=== PATIENT | female | born 1955 | race Caucasian/White ===

== ENCOUNTER 2025-03-06 14:35 | Day surgery (SDC) | payer MEDICARE, OTHER ==
[2025-03-06] MEDS ORDERED: Lactated Ringers IV ONE (14:36)
[2025-03-06] MEDS ORDERED: Depo-Medrol 40 MG/ML IM ONE (14:36)
[2025-03-06] MEDS ORDERED: LIDOCAINE HCL 1% AMPUL 5 ML IJ ONE (14:36)
[2025-03-06] MEDS ORDERED: BUPIVACAINE 0.5% VIAL IJ ONE (14:36)
--- NOTE | 2025-03-06 19:44 | XRAY ---
Indication: Right knee injection. Intraoperative fluoroscopy provided for 7 seconds. Single digital spot image submitted for interpretation demonstrates needle tip projecting over right femur intercondylar notch. Small amount of contrast injected for needle tip placement. Correlate with intraoperative findings/report.
--- NOTE | 2025-03-06 19:44 | XRAY ---
Indication: Left knee injection. Intraoperative fluoroscopy provided for 11 seconds. Single digital spot image submitted for interpretation demonstrates needle tip projecting over left femur intercondylar notch. Small amount of contrast injected for needle tip placement. Correlate with intraoperative findings/report.
--- NOTE | 2025-03-06 19:46 | XRAY ---
7 seconds of fluoroscopy were used in surgery for a right intra-articular knee injection.
--- NOTE | 2025-03-06 19:46 | XRAY ---
11 seconds of fluoroscopy were used in surgery for a left intra-articular knee injection.
== END 2025-03-06 17:50 | disposition home or self-care (01) ==
LOC: SDC-PAIN 14:35
PROVIDERS: ATTEND Psychiatry & Neurology Pain Medicine
DX: M17.0 Bilateral primary osteoarthritis of knee (principal); M70.51 Other bursitis of knee, right knee
CPT/HCPCS: 20610; 73560; 77002; Q9966

== ENCOUNTER 2025-03-09 11:09 | Emergency (ER) | payer MEDICARE, OTHER ==
--- NOTE | 2025-03-09 11:13 | ERPHSYRPT ---
- History of Present Illness Time Seen by Provider: 03/09/25 11:13 Source: patient, family Exam Limitations: no limitations Physician History: This is an overweight 69-year-old white female patient of Dr. Perez who arrives by private vehicle accompanied by her because of concerned of high blood pressure issues. Patient currently takes hydralazine 3 times a day and she took her morning dose. She has noticed in the last 3 to 4 days that her blood pressure has been running high. She intermittently has had episodes of left-sided headache and brief, intermittent left upper extremity numbness. Although symptoms have resolved. She has had no symptoms since over 24 hours ago. She has no headaches today and no numbness. On arrival to the emergency department her initial blood pressure reading was 251 mmHg over 136 mmHg. The second systolic blood pressure reading was 212. She is not having chest pain and she is not short of breath. Patient does have a history of hypertension on hydralazine and does take Xarelto. Timing/Duration: day(s) (3) Severity: moderate Associated Symptoms: headaches (No headaches now or today. Over 24 hours ago she did have a mild left-sided headache), other (2 days ago, she had mild, brief left upper quadrant numbness. She has no numbness today), No shortness of breath, No chest pain, No syncope, No seizure Allergies/Adverse Reactions: No Known Drug Allergies Allergy (Verified 03/09/25 11:48) Home Medications: Hydralazine HCl 50 mg PO BID 04/12/16 [History] Meloxicam [Mobic] 15 mg PO DAILY 03/09/25 [History] Rivaroxaban [Xarelto] 20 mg PO EVENING MEAL 03/09/25 [History] Travel Risk - International Travel Have you traveled outside of the country in past 3 weeks: No - Emerging Infectious Disease Are you exhibiting symptoms associated with any current EIDs: No - Review of Systems Constitutional: No Symptoms Eyes: No Symptoms Ears, Nose, & Throat: No Symptoms Respiratory: No Symptoms Cardiac: No Symptoms Abdominal/Gastrointestinal: No Symptoms Genitourinary Symptoms: No Symptoms Musculoskeletal: No Symptoms Skin: No Symptoms Neurological: No Symptoms, Other (She currently denies headache. She currently denies any type of numbness or neurological issues. Her NIH score is 0) Psychological: No Symptoms Endocrine: No Symptoms Hematologic/Lymphatic: No Symptoms Immunological/Allergic: No Symptoms All Other Systems: Reviewed and Negative - Past Medical History Neurological History: No Pertinent History Cardiac History: Hypertension Respiratory History: No Pertinent History Endocrine Medical History: No Pertinent History Musculoskeletal History: Fractures Other Medical History: PATIENT HAD A POSTERIOR APPROACH. - Past Surgical History Past Surgical History: Yes Neuro Surgical History: No Pertinent History Cardiac: No Pertinent History Gastrointestinal: No Pertinent History Genitourinary: No Pertinent History Musculoskeletal: No Pertinent History Female Surgical History: No Pertinent History Other Surgical History: R knee scope. 12/2015 - Social History Smoking Status: Never smoker Exposure to second hand smoke: No - Nursing Vital Signs Nursing Vital Signs: Initial Vital Signs Temperature 97.7 F 03/09/25 11:42 Pulse Rate 86 03/09/25 11:42 Respiratory Rate 14 03/09/25 11:42 Blood Pressure 251/136 03/09/25 11:42 O2 Sat by Pulse Oximetry 96 03/09/25 11:42 Pain Scale Pain Intensity 0 - Physical Exam General Appearance: no apparent distress, alert, anxiety Eye Exam: PERRL/EOMI, other (Mild, medial subconjunctival hemorrhage left pupil.) Ears, Nose, Throat Exam: normal ENT inspection, moist mucous membranes Neck Exam: normal inspection, non-tender, supple, full range of motion Respiratory Exam: normal breath sounds, lungs clear, airway intact, No chest tenderness, No respiratory distress Cardiovascular Exam: regular rate/rhythm, normal heart sounds, normal peripheral pulses Gastrointestinal/Abdomen Exam: soft, normal bowel sounds, No tenderness Pelvic Exam: not done Rectal Exam: not done Back Exam: normal inspection, normal range of motion, No CVA tenderness, No vertebral tenderness Extremity Exam: normal inspection, normal range of motion, pelvis stable Neurologic Exam: alert, oriented x 3, cooperative, 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, nml cerebellar function, nml station & gait, sensation nml Skin Exam: normal color, warm, dry Lymphatic Exam: No adenopathy SpO2 Interpretation: normal O2 Delivery: Room Air - Course Nursing assessment & vital signs reviewed: Yes Ordered Tests: Active Orders 24 hr Category Date Time Status Title Investigator STAT Care 03/09/25 12:22 Active EKG-ER Only STAT Care 03/09/25 12:21 Active IV Insertion STAT Care 03/09/25 12:21 Active NPO (ED) STAT Care 03/09/25 12:21 Active Pulse Oximetry (ED) STAT Care 03/09/25 12:21 Active HEAD WITHOUT CONTRAST [CT] Stat Exams 03/09/25 12:21 Completed CBC W DIFF Stat Lab 03/09/25 13:09 Completed CMP Stat Lab 03/09/25 13:09 Completed MAG [MAGNESIUM] Stat Lab 03/09/25 13:09 Completed UA W/RFX UR CULTURE Stat Lab 03/09/25 12:21 Completed Medication Summary Discontinued Medications Generic Name Dose Route Start Last Admin Trade Name Freq PRN Reason Stop Dose Admin Hydralazine HCl 10 mg 03/09/25 12:22 03/09/25 12:32 Hydralazine Hcl 20 Mg/Ml Vial IV 03/09/25 12:23 10 mg STAT ONE Administration Hydralazine HCl Confirm 03/09/25 12:30 Hydralazine Hcl 20 Mg/Ml Vial Administered 03/09/25 12:31 Dose 20 mg .ROUTE .STK-MED ONE Hydralazine HCl 10 mg 03/09/25 13:29 03/09/25 13:33 Hydralazine Hcl 20 Mg/Ml Vial IV 03/09/25 13:30 10 mg STAT ONE Administration Hydralazine HCl Confirm 03/09/25 13:32 Hydralazine Hcl 20 Mg/Ml Vial Administered 03/09/25 13:33 Dose 20 mg .ROUTE .STK-MED ONE Hydralazine HCl 5 mg 03/09/25 14:31 03/09/25 14:39 Hydralazine Hcl 20 Mg/Ml Vial IV 03/09/25 14:32 5 mg STAT ONE Administration Hydralazine HCl Confirm 03/09/25 14:37 Hydralazine Hcl 20 Mg/Ml Vial Administered 03/09/25 14:38 Dose 20 mg .ROUTE .STK-MED ONE Lab/Rad Data: Laboratory Result Diagrams 03/09/25 13:09 03/09/25 13:09 Laboratory Results 03/09/25 03/09/25 03/09/25 Range/Units 13:09 13:09 13:09 WBC 10.3 H (3.98-10.04) x10^3/uL RBC 4.63 (3.93-5.22) x10^6/uL Hgb 14.0 (11.2-15.7) g/dL Hct 41.7 (34.1-44.9) % MCV 90.1 (79.4-94.8) fL MCH 30.2 (25.6-32.2) pg MCHC 33.6 (32.2-35.5) g/dL RDW 13.3 (11.7-14.4) % Plt Count 264 (182-369) x10^3/uL MPV 8.8 L (9.4-12.3) fL Gran % 77.7 H (34.0-71.1) % Immature Gran % (Auto) 0.5 H (0.001-0.429) % Nucleat RBC Rel Count 0.0 (0.00-0.2) % Eos # (Auto) 0.11 (0.04-0.36) x10^3/uL Immature Gran # (Auto) 0.05 H (0.001-0.031) x10^3u/L Absolute Lymphs (auto) 1.10 L (1.18-3.74) x10^3/uL Absolute Monos (auto) 0.96 H (0.24-0.86) x10^3/uL Absolute Nucleated RBC 0.00 (0.00-0.012) x10^3u/L Lymphocytes % 10.7 L (19.3-51.7) % Monocytes % 9.3 (4.7-12.5) % Eosinophils % 1.1 (0.7-5.8) % Basophils % 0.7 (0.1-1.2) % Absolute Granulocytes 8.00 H (1.56-6.13) x10^3/uL Basophils # 0.07 (0.01-0.08) x10^3/uL Sodium 141 (135-145) mmol/L Potassium 3.5 (3.5-5.1) mmol/L Chloride 106 (98-107) mmol/L Carbon Dioxide 21 L (22-30) mmol/L Anion Gap 18.2 H (5-15) MEQ/L BUN 11 (7-17) mg/dL Creatinine 0.56 (0.52-1.04) mg/dL Estimated GFR 100.0 ML/MIN Glucose 121 H (74-106) mg/dL Calcium 10.4 H (8.4-10.2) mg/dL Magnesium 1.9 (1.6-2.3) mg/dL Total Bilirubin 0.60 (0.2-1.3) mg/dL AST 32 (14-36) U/L ALT 29 (0-35) U/L Alkaline Phosphatase 117 (38-126) U/L Serum Total Protein 7.6 (6.3-8.2) g/dL Albumin 4.6 (3.5-5.0) g/dL Urine Color (Yellow) Urine Appearance (Clear) Urine pH (4.6-8.0) Ur Specific [place] (1.005-1.030) Urine Protein (Negative) Urine Glucose (UA) (Negative) mg/dL Urine Ketones (Negative) Urine Blood (Negative) Urine Nitrite (Negative) Urine Bilirubin (Negative) Urine Urobilinogen (0.2) mg/dL Ur Leukocyte Esterase (Negative) U Hyaline Cast (Auto) (0-2) /LPF Urine Microscopic RBC (0-5) /HPF Urine Microscopic WBC (0-5) /HPF Ur Epithelial Cells (None Seen) /HPF Urine Bacteria (None Seen) /HPF Urine Culture Reflexed (NO) 03/09/25 Range/Units 12:21 WBC (3.98-10.04) x10^3/uL RBC (3.93-5.22) x10^6/uL Hgb (11.2-15.7) g/dL Hct (34.1-44.9) % MCV (79.4-94.8) fL MCH (25.6-32.2) pg MCHC (32.2-35.5) g/dL RDW (11.7-14.4) % Plt Count (182-369) x10^3/uL MPV (9.4-12.3) fL Gran % (34.0-71.1) % Immature Gran % (Auto) (0.001-0.429) % Nucleat RBC Rel Count (0.00-0.2) % Eos # (Auto) (0.04-0.36) x10^3/uL Immature Gran # (Auto) (0.001-0.031) x10^3u/L Absolute Lymphs (auto) (1.18-3.74) x10^3/uL Absolute Monos (auto) (0.24-0.86) x10^3/uL Absolute Nucleated RBC (0.00-0.012) x10^3u/L Lymphocytes % (19.3-51.7) % Monocytes % (4.7-12.5) % Eosinophils % (0.7-5.8) % Basophils % (0.1-1.2) % Absolute Granulocytes (1.56-6.13) x10^3/uL Basophils # (0.01-0.08) x10^3/uL Sodium (135-145) mmol/L Potassium (3.5-5.1) mmol/L Chloride (98-107) mmol/L Carbon Dioxide (22-30) mmol/L Anion Gap (5-15) MEQ/L BUN (7-17) mg/dL Creatinine (0.52-1.04) mg/dL Estimated GFR ML/MIN Glucose (74-106) mg/dL Calcium (8.4-10.2) mg/dL Magnesium (1.6-2.3) mg/dL Total Bilirubin (0.2-1.3) mg/dL AST (14-36) U/L ALT (0-35) U/L Alkaline Phosphatase (38-126) U/L Serum Total Protein (6.3-8.2) g/dL Albumin (3.5-5.0) g/dL Urine Color Yellow (Yellow) Urine Appearance Clear (Clear) Urine pH 7.5 (4.6-8.0) Ur Specific [place] <=1.005 (1.005-1.030) Urine Protein Negative (Negative) Urine Glucose (UA) Negative (Negative) mg/dL Urine Ketones Negative (Negative) Urine Blood Negative (Negative) Urine Nitrite Negative (Negative) Urine Bilirubin Negative (Negative) Urine Urobilinogen 0.2 (0.2) mg/dL Ur Leukocyte Esterase Trace A (Negative) U Hyaline Cast (Auto) NONE SEEN (0-2) /LPF Urine Microscopic RBC 0-2 (0-5) /HPF Urine Microscopic WBC 3-5 (0-5) /HPF Ur Epithelial Cells None Seen (None Seen) /HPF Urine Bacteria None Seen (None Seen) /HPF Urine Culture Reflexed NO (NO) - Progress Progress: improved, re-examined Progress Note: 03/09/25 12:15 My medical decision making and the assignment of moderate complexity to this patient's medical issue today is based on review of the patient's past medical history, review of the patient's medication list, review of patient drug allergy list, history present illness and physical findings on examination. The workup in this patient includes placement of intravenous line, infusion of hydralazine intravenously, CBC, CMP, urinalysis, magnesium level, twelve-lead EKG, CT scan of the head. Differential diagnosis includes was not limited to asymptomatic hypertension, acute intracranial abnormality, electrolyte abnormalities, arrhythmias, dehydration, urinary tract infection 03/09/25 14:53 I interpreted the patient's laboratory data results. Based on the laboratory data results, there are no acute, emergent medical issues. The CT scan of the head without contrast was interpreted by the radiologist and I reviewed the impression. The impression states no acute infarction, hemorrhage or significant mass effect. There is age-matched mild cerebral atrophic changes. There is a soft tissue density in the right nasal cavity. Likely this is a nasal polyp. Radiologist suggest referral to early head start teacher list if there is any concern for possible malignancy. The above results were discussed with the patient and her spouse. Patient is to be discharged to home. Her last 2 blood pressure readings are 152/92 and 164/92. Her mean arterial pressure has dropped 25 to 30% which is appropriate. Patient has no chest pain. She has no headache. She has no visual changes. She has no shortness of breath. She is stable for discharge. Counseled pt/family regarding: lab results, diagnosis, need for follow-up, rad results Medical Desision Making - Independent Historian Additional History obtained from: Spouse - Diagnostic Testing Diagnostic test were ordered, analyzed, and reviewed by me: Yes Radiological Interpretation: Reviewed by me, Teleradiologist Report - Risk of complications Low Risk: Low risk of morbidity from additional dx testing or treatment - Departure Departure Disposition: Home Clinical Impression: Asymptomatic hypertension Condition: Stable Critical Care Time: Yes Critical Care Time(excluding separately billable procedures): Critical 30-74 mins (45) Referrals: AMANDA PEREZ [Primary Care Provider, INTERNAL MEDICINE] - Follow up/PCP as directed Additional Instructions: Take all your medications today as prescribed. Keep a morning noon and night daily log over the next 48 hours of your blood pressure readings. Call your prescribing provider on 03/11/2025, to make arrangements for follow-up appointment to be seen in the next 2 to 3 days and discuss management of your high blood pressure.
[2025-03-09 11:50] VITALS: TEMP 97.7
[2025-03-09] MEDS ORDERED: APRESOLINE 20 MG/ML INJ ONE ×3 (12:30→14:37)
[2025-03-09] MEDS: APRESOLINE 20 MG/ML INJ IV ONE ×3 (12:32→14:39)
[2025-03-09 13:10] LABS: BASOPHIL % 0.7 % (0.1-1.2); Basophil (Absolute #) 0.07 x10^3/uL (0.01-0.08); Eosinophil % 1.1 % (0.7-5.8); Eosinophil (Absolute #) 0.11 x10^3/uL (0.04-0.36); Hematocrit 41.7 % (34.1-44.9); IMMATURE GRAN # 0.05 x10^3u/L (0.001-0.031); IMMATURE GRAN % 0.5 % (0.001-0.429); Lymphocytes % 10.7 % (19.3-51.7); Mean Cell Volume 90.1 fL (79.4-94.8); Mean Corpuscular Hemoglobin 30.2 pg (25.6-32.2); Mean Corpuscular Hgb Concent. 33.6 g/dL (32.2-35.5); Mean Platelet Volume 8.8 fL (9.4-12.3); Monocyte (Absolute #) 0.96 x10^3/uL (0.24-0.86); Monocytes % 9.3 % (4.7-12.5); Neutrophil % 77.7 % (34.0-71.1); Platelet Count 264 x10^3/uL (182-369); Red Blood Count 4.63 x10^6/uL (3.93-5.22); Red Cell Distribution Width 13.3 % (11.7-14.4); White Blood Count 10.3 x10^3/uL (3.98-10.04)
[2025-03-09 13:30] LABS: ALBUMIN 4.6 g/dL (3.5-5.0); ANION GAP 18.2 MEQ/L (5-15); BILIRUBIN,TOTAL 0.6 mg/dL (0.2-1.3); Calcium 10.4 mg/dL (8.4-10.2); Creatinine 1 0.56 mg/dL (0.52-1.04); Potassium 3.5 mmol/L (3.5-5.1); Total Protein 7.6 g/dL (6.3-8.2)
[2025-03-09 13:32] LABS: Appearance Clear (Clear); Bacteria None Seen /HPF (None Seen); Bilirubin Negative (Negative); Blood Negative (Negative); Epithelial Cells None Seen /HPF (None Seen); Glucose, Urine Negative (Negative); Hyaline Casts NONE SEEN /LPF (0-2); Ketones Negative (Negative); Leukocyte Esterase Trace (Negative); Nitrite Negative (Negative); Ph 7.5 (4.6-8.0); Protein,Urine Dip Negative (Negative); RBC 0-2 /HPF (0-5); Specific Gravity <=1.005 (1.005-1.030); Urobilinogen 0.2 mg/dL (0.2)
--- NOTE | 2025-03-09 14:27 | XRAY ---
CLINICAL HISTORY: htn; headache COMPARISON: None. TECHNIQUE: An axial non-contrast CT scan of the brain was performed from the skull base to the high parietal region. One of the following dose reduction techniques was utilized for this exam: Automated exposure control, adjustment of the mA and/or kV according to patient size, and use of iterative reconstruction. FINDINGS: Brain Parenchyma: Normal attenuation of the cerebral hemispheres, cerebellum, and brainstem. No evidence of acute infarct, hemorrhage, or mass effect. No abnormal areas of hypo- or hyperattenuation. Ventricular System: Mild asymmetry in size between both lateral ventricles, likely nonsignificant. No evidence of hydrocephalus. Subarachnoid Spaces: No evidence of subarachnoid hemorrhage or extra-axial fluid collections. Cerebellum and Brainstem: Normal size and signal. No masses, lesions, or areas of abnormal density. Lior cisterna magna. Orbits: Normal appearance of the globes, optic nerves, and extraocular muscles. No evidence of orbital masses or abnormal density. Sinuses: Clear paranasal sinuses. No evidence of sinusitis or mucosal thickening. There appears to be a soft tissue density lesion/mass occupying the right nasal cavity anteriorly measuring about 1.2X 1.5 cm, extending superiorly and possibly arising from the middle meatus or ethmoid region and causing leftward deviation of the nasal septum. This could represent a polyp or sinonasal mass. Recommend dedicated CT sinuses if clinically warranted. Mastoid Air Cells: Mild right mastoiditis. Skull: No calvarial bony injury. IMPRESSION: 1. No evidence of acute infarct, hemorrhage, or significant mass effect. 2. Age-matched mild cerebral atrophic changes. 3. Soft tissue density lesion in the right nasal cavity, suggestive of a nasal polyp or inflammatory sinonasal disease. Neoplastic etiology is less likely but should be considered if there is rapid growth or associated bone destruction. Associated leftward nasal septal deviation. Consider ENT referral for nasal endoscopy. Contrast-enhanced CT may be recommended if a neoplastic lesion is suspected. Electronically Signed by: Brittney Castañeda MD. (03/09/2025 14:23:56 EDT)
[2025-03-09 15:26] VITALS: BP 156/94; PULSE 88; RESP 17; O2SAT 95
== END 2025-03-09 15:34 | disposition home or self-care (01) ==
LOC: ED 11:09
DX: I10 Essential (primary) hypertension (principal); Z79.01 Long term (current) use of anticoagulants; Z79.899 Other long term (current) drug therapy
CPT/HCPCS: 36415; 70450; 80053; 81001; 83735; 85025; 93005; 93041; 94760; 96374; 96376; 99284; 99291; J0360